=== PATIENT | female | born 1955 | race Caucasian/White ===

== ENCOUNTER 2022-08-21 09:15 | Day surgery (SDC) | payer MEDICARE, OTHER ==
[~2022-08-21] VITALS: Ht 154.9 cm; Wt 54.4 kg
[~2022-08-21 09:15] MED LIST: ALPHA LIPOIC A200 MG; ASCO500 PO; CHOL10002; FISH1000; GLUC500; MAGCHL64ER; MULVITMIND; Super B-50 Com1 EACH; T3/T4; UBID10; YUVAFEM10 MCG
== END 2022-08-21 11:57 | disposition home or self-care (01) ==
LOC: ORSCSDS 09:15
PROVIDERS: Surgery
PROC: 0DJD8ZZ Inspection of Lower Intestinal Tract, Via Natural or Artificial Opening Endoscopic (ICD-10-PCS; principal; 2022-08-21 10:30)
DX: Z12.11 Encounter for screening for malignant neoplasm of colon (principal); Z80.0 Family history of malignant neoplasm of digestive organs; E03.9 Hypothyroidism, unspecified; Z79.899 Other long term (current) drug therapy
CPT/HCPCS: J0330; J0461; J2405; J2704; J7120